=== PATIENT | female | born 1965 | race Caucasian/White ===

== ENCOUNTER 2022-09-04 10:55 | Emergency (ER) | payer MEDICARE, MEDICAID ==
[2022-09-04] MEDS ORDERED: Lidocaine 5% 700 MG Patch TRDERM ONE (13:52)
[2022-09-04] MEDS ORDERED: Ibuprofen 800 MG Tab PO ONE (13:52)
== END 2022-09-04 15:30 | disposition home or self-care (01) ==
LOC: MW.ED 10:55
DX: S20.212A Contusion of left front wall of thorax, initial encounter (principal); I10 Essential (primary) hypertension; E11.9 Type 2 diabetes mellitus without complications; Z86.711 Personal history of pulmonary embolism; Z79.84 Long term (current) use of oral hypoglycemic drugs; Z79.899 Other long term (current) drug therapy; W00.0XXA Fall on same level due to ice and snow, initial encounter
CPT/HCPCS: 71101; 99284; A9270